=== PATIENT | female | born 1950 | race Caucasian/White ===

== ENCOUNTER → 2017-10-15 10:52 | Outpatient (CLI) | payer OTHER, SELFPAY ==
--- NOTE | 2017-10-15 | DI.CT.S_ITS ---
PROCEDURE: CT LUMBAR SPINE WO CON INDICATIONS: LUMBAR SPINE TECHNIQUE: Noncontrast 3 mm thick sections acquired from the T12 level to the sacrum. Sagittal and coronal reformats were constructed. For radiation dose reduction, the following was used: automated exposure control. COMPARISON: [facility] [place], CR, XR LUMBAR SPINE FLEXION EXTENSION, 10/04/2017, 10:25. FINDINGS: Image quality: Excellent. Bones: There is normal bony alignment. There is moderate compression deformity of T12 acute vertebral body. No suspicious lytic or blastic bony lesions. Central spinal caliber is of normal overall caliber. No pars defects. T12-L1: Mild loss of disc height and posterior disc bulge. No central canal stenosis or foraminal stenosis. L1-L2: Mild loss of disc height and posterior disc bulge. No central canal stenosis. Mild to moderate bilateral foraminal stenosis. L2-L3: Mild loss of disc height and broad posterior disc bulge and disc protrusion. There is mild bilateral facet arthropathy and moderate hypertrophy of the flavum. The central canal is eiaxreys-no-hebeqdvc narrowed. Mild to moderate bilateral foraminal stenosis. L3-L4: Mild loss of disc height and broad posterior disc bulge and disc protrusion. There is mild bilateral facet arthropathy and hypertrophy of the flavum. The central canal is vaem-rl-bxyppbwb to severely narrowed. Mild to moderate bilateral foraminal stenosis. L4-L5: Surgically fused. No central canal or foramina stenosis. L5-S1: Surgically fused. No central canal or foramina stenosis. Soft tissues: No retroperitoneal masses or hematomas. Visualized aorta is normal in caliber. There are calcified granulomas in spleen. IMPRESSION: 1. Multilevel degenerative and postsurgical changes in lumbar spine as described. 2. Moderate to severe central canal stenosis at L2-L3. 3. Vwxr-zg-[id number] foraminal stenosis at L2-L3 and L3-L4. 4. Moderate compression deformity of T12, indeterminate chronicity. Dictated by: Vipul Gregory M.D. on 10/15/2017 at 13:05 Approved by: Vipul Gregory M.D. on 10/16/2017 at 9:49
== END ==
PROVIDERS: Visit Provider Orthopaedic Surgery Orthopaedic Surgery of the Spine
DX: M51.36 Other intervertebral disc degeneration, lumbar region (principal); M48.061 Spinal stenosis, lumbar region without neurogenic claudication; M99.73 Connective tissue and disc stenosis of intervertebral foramina of lumbar region
CPT/HCPCS: 72131

== ENCOUNTER → 2018-01-17 11:02 | Outpatient (CLI) | payer OTHER, SELFPAY ==
[2018-01-17 12:21] LABS: Add Manual Diff / Slide Review NO; Basophils Percent Auto 0.3 % (0-2); Eosinophils Percent Auto 2.7 % (2-4); Hematocrit 40.4 % (36-46); Hemoglobin 13.7 g/dL (12.0-16.0); Mean Corpuscular Hemoglobin 30.8 PG (26-34); Mean Corpuscular Volume 90.6 fL (80-100); Monocytes Percent Auto 14.8 % (3-14); Neutrophils Absolute Auto 2300 /uL (3000-5900); Neutrophils Percent Auto 62.2 % (50-75); Platelet Count 150 X10^3/uL (150-400); Red Blood Cell Count 4.46 X10^6/uL (4.0-5.2); Red Cell Distribution Width 13.2 % (11.6-14.8); White Blood Cell Count 3.6 X10^3/uL (4.5-11.0)
[2018-01-17 12:35] LABS: Blood Urea Nitrogen 10 mg/dL (7-17); Calcium 9.5 mg/dL (8.4-10.2); Carbon Dioxide 29 mmol/L (22-32); Chloride 98 mmol/L (98-107); Estimated Glomerular Filt Rate > 60.0 mL/min (>60); Glucose 83 mg/dL (80-110); HEMOLYSIS < 15 (0-50); Potassium 4.3 mmol/L (3.4-5.1); Sodium 137 mmol/L (137-145)
[2018-01-17 14:05] LABS: Bacteria Urine None Seen; RBC Urine None Seen (0-5/HPF); WBC Urine None Seen (0-5/HPF)
[2018-01-17 14:43] LABS: Appearance Urine UA CLEAR; Bilirubin Urine UA NEGATIVE (NEGATIVE); Color Urine UA YELLOW; Glucose Urine UA NEGATIVE (Normal); Ketones Urine UA NEGATIVE (NEGATIVE); Leukocyte Esterase Urine UA NEGATIVE (NEGATIVE); Nitrite Urine UA Negative (Negative); Occult Blood Urine UA NEGATIVE (Negative); Protein Urine UA NEGATIVE (Negative); Specific Gravity Urine UA 1.015 (1.000-1.035); Urobilinogen Urine UA 0.2 E.U./dL (0.2); pH Urine UA 6.5 (4.5-8.0)
[2018-01-17 14:50] LABS: INR 1.1 (0.9-1.3); Prothrombin Time 11.7 SECONDS (10.1-12.7)
[2018-01-17 14:53] LABS: PTT Partial Thromboplastin Tim 30 SECONDS (26.4-36.2)
[2018-01-17 14:59] LABS: Squamous Epithelial Cell Urine 0-1 /HPF
== END ==
PROVIDERS: Visit Provider Orthopaedic Surgery Orthopaedic Surgery of the Spine
DX: Z01.818 Encounter for other preprocedural examination (principal); M47.26 Other spondylosis with radiculopathy, lumbar region; M48.061 Spinal stenosis, lumbar region without neurogenic claudication
CPT/HCPCS: 36415; 80048; 81001; 85025; 85610; 85730; 93005; 93010

== ENCOUNTER 2018-02-04 12:03 | Observation (INO) | payer OTHER, SELFPAY ==
[2018-01-18 10:25] VITALS: BMI 22.1
[2018-01-25 11:29] VITALS: BMI 20.9
[2018-02-04] VITALS (12 sets, daily range): BP systolic 120–151; BP diastolic 54–86; PULSE 56–89; RESP 10–18; TEMP 36–36.9; O2SAT 95–100; BMI 20.9
[2018-02-04] MEDS: LACTATED RINGERS 1,000 ML 42 ML IV (14:00)
[2018-02-04] MEDS: MIDAZOLAM 2 MG/2 ML VIAL IV (15:25)
--- NOTE | 2018-02-04 15:27 | SUR.PREOP ---
pt up to br a few times while waiting for surgery. midazolam given for anxiety, pt then taken to surgery.
[2018-02-04] MEDS: CEFAZOLIN 2 GM/100 ML FROZ.PIGGY IV (15:30)
--- NOTE | 2018-02-04 16:03 | SUR.OPER ---
Prone on spine table, head in foam head support, padded chest and pelvic supports, gel pad at knees, lower legs supported by pillows; nipples, genitalia and toes free of pressure, arms secured on foam padded arm boards at <90 degrees abduction. Tape over blanket at thigh secured to table.
[2018-02-04] MEDS: BUPIVACAINE 0.25% W/ EPI VIAL 30 ML INJ (16:07)
[2018-02-04] MEDS: methylPREDNISolone acet DEPO 40 MG/ML VIAL INJ (16:09)
--- NOTE | 2018-02-04 16:25 | PM.OP.1 ---
Operative Date/Time/Diagnoses Date of procedure: 02/04/18 Time of procedure: 15:25 Pre-op diagnosis: 1. L2-3, L3-4 spinal stenosis 2. L2-3, L3-4 spondylosis with radiculopathy Post-op diagnosis: same Procedure & Clinicians Procedure: 1. L2-3, L3-4 laminectomy 2. Utilization of microsurgical technique and operating microscope Same procedure as scheduled: Yes Indications: Patient has been having chronic back pain and worsening lumbar radiculopathy. Patient failed multiple conservative management with worsening pain weakness and numbness in her lower extremity. Patient has been having difficulty performing activity of daily living. After discussing risks benefits of treatment options, patient elected proceed with surgery. Surgeon: Diana Hudson [place] Operator: Shaye Mckinney Click Yes if Unassisted: No Anesthesia Type: General Operative Notes Closure Type: primary Specimen(s): none sent Estimated Blood Loss (mL): 10 Blood products transfused: none Procedure in detail: Patient was seen in the preoperative area. Risks and benefits of the surgery was discussed with the patient. Informed consent was obtained from the patient and placed in the chart. Surgical site was marked. Patient was taken to the operative room. General anesthesia was administered. Prophylactic antibiotic was given to the patient less than 30 min before the incision was made. Patient was placed into a prone position on the Matt table. Patient's back was then prepped and draped in the sterile fashion. Time-out was performed at this time. Using AP and lateral C-arm imaging the interval between L2-3, L3-4 was identified and marked on patient's back. A 2 inch incision 1 in from midline was made on the right side. The fascia was incised in line with skin incision. Globus MARS retractors was placed inside the incision and docked onto the L2 and L3 lamina. Using microsurgical technique and operating microscope, a L2 and L3 laminectomy was performed using a Kerrison rongeur. Liagamentum flavum was resected at the site of the laminotomy. Either side of the dura was exposed. Bilateral partial facetcomies was performed to further decompress the lateral recess. After the laminectomy was completed, the area medial lateral superior and inferior to the area of the laminectomy was inspected and explored using a micro curette. No other impinging structure was identified. The wound was then irrigated with sterile normal saline. 40 mg Depo-Medrol was placed into the epidural space. The deep fascia was closed with 1-0 Vicryl. The subcutaneous tissue was closed with 2-0 Vicryl. The skin was closed with 4-0 Monocryl. Patient tolerated the procedure well. There were no complications. Patient was transferred recovery room in stable condition. Complications: none Condition: stable Disposition: observation Plan for aftercare: Overnight stay for observation
--- NOTE | 2018-02-04 16:28 | DI.RAD.S_ITS ---
PROCEDURE: XR LUMBAR SPINE 2-3V INDICATIONS: L2-3, L3-4 MICRO DISCECTOMY TECHNIQUE: 2 intraoperative fluoroscopic views of the lumbar spine were acquired. COMPARISON: None. FINDINGS: Bones: Intraoperative fluoroscopic images of lumbar spine shows prior posterior fusion of 3 lumbar spine vertebral bodies and a surgical instrument placed posteriorly just above the level of most proximal views vertebral body. Exact level cannot be determined based on the images given. IMPRESSION: Fluoroscopic guidance was provided intraoperatively for lumbar spine microdiscectomy. Dictated by: Lazaro Rob M.D. on 02/04/2018 at 16:36 Approved by: Lazaro Rob M.D. on 02/04/2018 at 16:37
[2018-02-04] MEDS: METOCLOPRAMIDE 10 MG/2 ML INJ IV (16:54)
[2018-02-04] MEDS: fentaNYL 100 MCG/2 ML INJ 50 MCG IV ×2 (16:54→17:03)
[2018-02-04] MEDS: ONDANSETRON 4 MG/2 ML INJ IV (17:53)
[2018-02-04] MEDS: SODIUM CHLORIDE 0.9% 1,000 ML 100 ML IV (17:53)
[2018-02-04] MEDS: HYDROMORPHONE 1 MG INJ 0.2 MG IV ×2 (17:53→21:46)
--- NOTE | 2018-02-04 17:59 | PC.NURSE ---
Admit Note: Patient admitted to Acute Care from PACU at 1730. S/p laminectomy. Patient pleasant, alert and oriented times 2. Patient verbalized understanding of log roll, call light and orientation to room. Patient medicated for nausea and pain. Admission done and report given to KALEIGH Wade.
[2018-02-04] MEDS: OXYCODONE IR 5 MG TABLET PO ×2 (20:28→23:51)
[2018-02-04] MEDS: DOCUSATE 100 MG CAPSULE PO (20:28)
[2018-02-04] MEDS: LORazepam 1 MG TABLET PO (20:29)
[2018-02-04] MEDS: LOSARTAN 50 MG TABLET PO (20:29)
[2018-02-04] MEDS: CARISOPRODOL 350 MG TABLET PO (20:32)
[2018-02-04] MEDS: SENNOSIDES 8.6 MG TABLET 17.2 MG PO (20:33)
[2018-02-04] MEDS: SODIUM CHLORIDE 0.9% FLUSH 10 ML IV (21:48)
--- NOTE | 2018-02-04 22:20 | PC.NURSE ---
Post-op note: Treri brought from PACU via [facility], as was originally supposed to DC from PACU as outpatient. Pt has no one to help her tonight so is admitted to [facility]. Assisted her to transfer from [facility] to bed, post-op Lami instructions reinforced. Reported pain and nausea upon admission, float RN in room to medicate her. Since then has been given one tab oxycodone which took her pain from a 8 to a 5, later saying 'it was not enough, I then medicated her with Dilaudid 0.2 mg IV for breakthru pain. Found patient sitting up in bed not using bed controls, twisting at waist to reach things on bedside table. I reviewed the lami post-op instructions & precautions with her again. She told me she is forgetful--I have to leave notes all over my house so I remember to do things. Oriented to self, place & situation, instructed to use call button for assistance. Denies nausea, able to eat 1/2 sandwich and crackers tonight. Voiding via BR toilet. 2nd water bottle given to her as she reports I need 2 bottles--I drink a lot of water.
[2018-02-04] MEDS: ZOLPIDEM 5 MG TABLET 10 MG PO (23:51)
[2018-02-05] MEDS: HYDROMORPHONE 1 MG INJ 0.2 MG IV ×2 (02:08→04:59)
[2018-02-05] MEDS: CEFAZOLIN 1 GM/50 ML FROZ.PIGGY IV (02:09)
[2018-02-05] MEDS: OXYCODONE IR 5 MG TABLET PO (02:56)
[2018-02-05] MEDS: SODIUM CHLORIDE 0.9% 1,000 ML 100 ML IV (02:58)
[2018-02-05 03:04] VITALS: BP 124/72; PULSE 68; RESP 17; TEMP 36.8; O2SAT 98
--- NOTE | 2018-02-05 04:15 | PC.NURSE ---
shift note pt complains of pain 7-8/10 throughout much of shift. Provided prn percolone and IV dialudid. Little decrease in pain. Call light in hand.
[2018-02-05] MEDS: LEVOTHYROXINE 25 MCG TABLET PO (05:41)
[2018-02-05 06:10] LABS: Hematocrit 38.3 % (36-46); Hemoglobin 13.2 g/dL (12.0-16.0)
[2018-02-05] MEDS: CARISOPRODOL 350 MG TABLET PO (06:22)
[2018-02-05 07:23] VITALS: BP 121/70; PULSE 70; RESP 18; TEMP 36.4; O2SAT 98
--- NOTE | 2018-02-05 07:40 | PM.PNPO.1 ---
Subjective Date Patient Seen: 02/05/18 Time Patient Seen: 07:41 Interval history: Patient is status post L2-L4 laminectomy by Dr. Hudson. Postop day 1. Patient states that she was uncomfortable this morning and had to get a shot of Dilaudid. Currently only 1 oxycodone 5 mg ordered every 3 hr for her. She notes that she is very narcotic resistant. She has been on 2 hydrocodone and Soma for her back pain. She is also asking for a prescription for Soma discharge. She cannot get a prescription from any physician in [place] at this moment. Her prescription is from her doctor in [place] which she can get any refills now. She states it is the only medication that helps with her muscle spasms and she has tried multiple muscle relaxers in the past. Exam Vital Signs (past 8 hours): - 02/04/18 23:50 02/05/18 03:04 02/05/18 07:23 Temperature 97.1 F L 98.3 F 97.5 F L Pulse Rate 89 68 70 Respiratory Rate 16 17 18 Blood Pressure 134/80 124/72 121/70 Pulse Oximetry 95 98 98 Oxygen Delivery Method Room Air Oxygen Flow Rate 0 Narrative Exam Narrative: Patient in bed. Appears comfortable. Back dressings clean dry and intact. Bilateral calf soft nontender. 5/5 BLE. Neurovascular status intact. Objective Labs Result Diagrams: 02/05/18 05:41 Labs: Laboratory Results - last 24 hr 02/05/18 05:41 Hgb 13.2 Hct 38.3 Assessment & Plan Post-op Postoperative Procedures Operation Date: 02/04/18 13:45 Actual Procedures Side Surgeon p Laminectomy L2-3,L3-4 Diana Hudson MD Status post L2-L4 laminectomy. PD 1. Ambulate with PT. Oxycodone will be increased to 10mg q3h. Will try valium for muscle spasms. D/C IV dilaudid. 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 Quality VTE Deep Vein Thrombosis/Pulmonary Embolism Present on Admission: No
--- NOTE | 2018-02-05 07:47 | P.PN_ITS ---
Subjective Date Patient Seen: 02/05/18 Time Patient Seen: 07:41 Interval history: Patient is status post L2-L4 laminectomy by Dr. Hudson. Postop day 1. Patient states that she was uncomfortable this morning and had to get a shot of Dilaudid. Currently only 1 oxycodone 5 mg ordered every 3 hr for her. She notes that she is very narcotic resistant. She has been on 2 hydrocodone and Soma for her back pain. She is also asking for a prescription for Soma discharge. She cannot get a prescription from any physician in [place] at this moment. Her prescription is from her doctor in [place] which she can get any refills now. She states it is the only medication that helps with her muscle spasms and she has tried multiple muscle relaxers in the past. Exam Vital Signs (past 8 hours): - 02/04/18 23:50 02/05/18 03:04 02/05/18 07:23 Temperature 97.1 F L 98.3 F 97.5 F L Pulse Rate 89 68 70 Respiratory Rate 16 17 18 Blood Pressure 134/80 124/72 121/70 Pulse Oximetry 95 98 98 Oxygen Delivery Method Room Air Oxygen Flow Rate 0 Narrative Exam Narrative: Patient in bed. Appears comfortable. Back dressings clean dry and intact. Bilateral calf soft nontender. 5/5 BLE. Neurovascular status intact. Objective Labs Result Diagrams: 02/05/18 05:41 Labs: Laboratory Results - last 24 hr 02/05/18 05:41 Hgb 13.2 Hct 38.3 Assessment & Plan Post-op Postoperative Procedures Operation Date: 02/04/18 13:45 Actual Procedures Side Surgeon p Laminectomy L2-3,L3-4 Diana Hudson MD Status post L2-L4 laminectomy. PD 1. Ambulate with PT. Oxycodone will be increased to 10mg q3h. Will try valium for muscle spasms. D/C IV dilaudid. 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 Quality VTE Deep Vein Thrombosis/Pulmonary Embolism Present on Admission: No
[2018-02-05] MEDS: DOCUSATE 100 MG CAPSULE PO (08:02)
[2018-02-05] MEDS: LOSARTAN 50 MG TABLET PO (08:02)
[2018-02-05] MEDS: OXYCODONE IR 10 MG TABLET PO (08:02)
--- NOTE | 2018-02-05 09:32 | OT.IP.EVAL ---
Current Diagnoses Sleep apnea, unspecified (02/04/18) Heart failure, unspecified (02/04/18) Emphysema, unspecified (02/04/18) Other spondylosis with radiculopathy, lumbar region (02/04/18) Spinal stenosis, lumbar region without neurogenic claudication (02/04/18) Arthrodesis status (02/04/18) Other specified postprocedural states (02/04/18) Surgery Performed Operation Date: 02/04/18 13:45 Actual Procedures p Laminectomy L2-3,L3-4 - Diana Hudson MD Past Medical History (Last Updated 01/29/18 @ 08:52 by Marilee Mitchell RN) Anxiety (Acute) Arthralgia (Acute) Arthritis (Acute) CAD (coronary artery disease) (Acute) CHF (congestive heart failure) (Acute) COPD (chronic obstructive pulmonary disease) (Acute) Cataract (Acute) Central stenosis of spinal canal (Acute) Chronic arthralgias of knees and hips (Acute) Chronic pain (Acute) Chronic viral hepatitis (Acute) Cystocele (Acute) Disease of thyroid gland (Acute) Dyspareunia (Acute) Emphysema of lung (Acute) Environmental allergies (Acute) Epistaxis (Acute) Fatigue (Acute) Fibromyalgia (Acute) Foraminal stenosis of lumbar region (Acute) H/O multiple allergies (Acute) Hearing loss (Acute) History of anemia (Acute) History of epistaxis (Acute) History of headache (Acute) History of hepatitis C (Acute) History of migraine headaches (Acute) Hypertension (Acute) Impaired vision (Acute) LBBB (left bundle branch block) (Acute) Latent tuberculosis infection (Acute) Mitral valve prolapse (Acute) Non-restorative sleep (Acute) Osteoarthritis of spine with radiculopathy, lumbar region (Acute) Osteoarthropathy (Acute) Osteoporosis (Acute) Productive cough (Acute ~2016) Rash (Acute) Rectocele, female (Acute) Restless leg syndrome (Acute) Rheumatoid factor positive (Acute) Ringing in ears (Acute) Sleep apnea (Acute ~1997) Squamous cell carcinoma (Acute) Squamous cell skin cancer (Acute) Stomach ulcer (Acute) Weakness (Acute) Surgical History (Last Updated 01/25/18 @ 11:01 by Marilee Mitchell, RN) Cataract extraction status of left eye (Acute) H/O sinus surgery (Acute ~2017) History of cardiac cath (Acute ~2005) History of lumbar spinal fusion (Acute ~2002) History of nasal septoplasty (Acute 11/26/17) History of nasal surgery (Acute) History of throat surgery (Acute) History of total knee arthroplasty (Acute) History of uvulopalatopharyngoplasty (Acute) Hx of breast implants, bilateral (Acute ~1990) Occupational Therapy Inpatient Evaluation/Re-Eval M1 PT/OT-IP Prior Functional Status Start: 02/05/18 12:30 Freq: NEEDED Status: Active Protocol: Document 02/05/18 09:32 PJM (Rec: 02/05/18 12:47 PJM [id number]) Medical Review Prior Functional Status Medical History Reviewed Yes Diet/Fluid Consistency Regular Communication WNL Mobility and Gait mod ind w/ SPC, does better walking, cannot stand still for very long Activities of Daily Living and IADL's ind to mod ind, though describes having difficulty with most dictaphone typist;,pt applying for choreworker assistance Prior Functional Level (Other details) pt has had one fall when stepping off step stool 5-6 months ago Knee buckled; pt admits to high anxiety and would like to get a therapy dog Social History Household Members none Living Arrangements Apartment/Condo Number of Floors (Floors) One Floor Number of Stairs To Enter/Railing? n/a, pt states she has a steep unpaved incline down to access her apartment Home Environment Standard Height Toilet Tub/Shower Home Equipment Straight Cane Employment Status Retired Additional Social History Comment pt uses laundry room in her apt complex M2 OT-IP Current Condition Start: 02/05/18 12:30 Freq: Status: Active Protocol: Document 02/05/18 09:32 PJM (Rec: 02/05/18 12:47 PJM [id number]) Occupational Therapy Current Condition Current Condition Evaluation Date 02/05/18 Treatment Diagnosis 0900 Diagnosis Onset Date 32 Post Operative Precautions Lumbar Precautions Log Roll No Twisting Limit Bending Lifting Restriction of 10 lbs Gait Belt above Incisional Area M3 OT- IP Subjective and Pain Start: 02/05/18 12:30 Freq: Status: Active Protocol: Document 02/05/18 09:32 PJM (Rec: 02/05/18 12:47 PJM [id number]) OT- Subjective Occupational Therapy Visit Type Type Initial Evaluation Visit Start Time 09:00 Visit Stop Time 09:32 Total Visit Minutes 32 Occupational Therapy Visit Comments Patient Comments When do I get this IV out? Patient/Caregiver Goals to go home today; have less back pain OT Pain Assessment Pain When Pain Assessed After Treatment Pain Present Pain Present Pain Reported Location Back Intensity 7 Scale Used Numeric (1 - 10) Description Aching Pain Behaviors Facial Grimacing Guarding Management Techniques Distraction Re-positioning Timing of Activity with Medications M4 OT- IP ADL's Start: 02/05/18 12:30 Freq: Status: Active Protocol: Document 02/05/18 09:32 PJ (Rec: 02/05/18 12:47 PJ [id number]) OT [id number] General Evaluation Self-Feeding Ability Independent OT ADL-Grooming General Evaluation Grooming Ability Independent Areas Needing Assistance Combing/Brushing Hair Face Washing Comments OT Grooming Comments standing at sink after education re: body mechanics OT ADL-Oral Care General Eval Oral Care Ability Independent Comments Oral Care Comments standing at sink after education re: body mechanics OT ADL-Dressing General Eval Upper Body Dressing Ability Independent Lower Body Dressing Ability Independent Areas Needing Assistance Pants/Shorts Socks Shoes Assistive Devices Dressing Assistive Devices Long Handled Shoe Horn Money Order Clerk Sock Aid Comments OT Dressing Comments Pt modified indep after education re: use of above equipment (all equipt provided ) and education re: body mechanics. OT ADL-Toileting General Evaluation Toileting Ability Independent Comments OT Toileting Comments provided education re: body mechanics, equipt options to increase height of toilet, and equipt resources OT ADL-Bathing Bathing Type Bathing Type Shower Comments OT Bathing Comments pt declined to shower here, provided education re: body mechanics and provided long bath sponge. Provided education re: tub seat options , clamp on tub grab bar and resources for obtaining equipment. M5 OT- IP IADL's Start: 02/05/18 12:30 Freq: Status: Active Protocol: Document 02/05/18 09:32 PJM (Rec: 02/05/18 12:47 PJ [id number]) OT-Instrumental Activities of Daily Living Deficits IADL Deficits Identified Deficits Home Safety Awareness Awareness of Need for Assistance at Home Good Awareness Ability to Problem Solve Emergency Able to Problem Solve Situations Medication Management Medication Management No Deficits Identified Money Management Money Management No Deficits Identified Meal Preparation Meal Preparation No Deficits Identified Supervisor Plating And Point Assembly Supervisor Plating And Point Assembly Caregiver Provides Assist Supervisor Plating And Point Assembly Comments Pt's granddaughter assists pt PRN; pt applying for choreworker assistance. Driving Driving Caregiver Provides Assist Driving Comments Granddaughter assists PRN M6 OT- IP Functional Cognition Start: 02/05/18 12:30 Freq: Status: Active Protocol: Document 02/05/18 09:32 PJM (Rec: 02/05/18 12:47 PJM [id number]) Cognitive Factors Limiting Selfcare Function Cognitive Ability Level of Alertness Alert Patient Orientation Name Age Birthday Month Date Year Day of Week Place Situation Attention Span Ability Capable of Focused Attention Capable of Sustained Attention Ability to Follow Commands Able to Follow One Step Commands Memory Description No Deficits Noted Safety Awareness Decreased Recall of Precautions Problem Solving Ability Needs Assist to Identify Solutions Cognitive Comments Cognitive Assessment Comments Pt needs occasional cues to avoid bending and especially twisting during functional tasks. OT- Vision and Hearing OT- Hearing Assessment OT- Hearing Assessment WFL OT- Vision Assessment Visual Acuity Glasses All The Time Vision Assessment Comments Pt reports needing R cataract surgery; denies any recent changes M7 OT- IP Mobility and Balance Start: 02/05/18 12:30 Freq: Status: Active Protocol: Document 02/05/18 09:32 PJM (Rec: 02/05/18 12:47 PJ NR) OT-Transfer Assessment Sit to and From Stand Sit to and from Stand Independent Transfers Transfer Ability Independent Technique Transfer Destination Chair Transfer Technique Stand Step Pivot Devices Transfer Assistive Devices None OT- Gait Assessment Gait Gait Assistance Required: Independent Assistive Devices Assistive Device None Comments Gait Ability Comments Pt ambulating in room without a device to sink and back OT- Balance Assessment Sitting Balance and Reactions Static Sitting Balance Ability Normal Dynamic Sitting Balance Ability Normal Standing Balance and Reactions Static Standing Balance Ability Good Dynamic Standing Balance Ability Good Comments Other Balance Tests/Deviations/Treatment during self care tasks : M8 OT- IP Objective Assessments Start: 02/05/18 12:30 Freq: Status: Active Protocol: Document 02/05/18 09:32 PJM (Rec: 02/05/18 12:47 PJ [id number]) OT Gross Range of Motion Upper Extremity Range of Motion Assessment Within Functional Limits OT Strength Upper Extremity Strength Assessment Within Functional Limits OT- Coordination Assessment Comments Coordination Comments BUE WFL OT Sensation Assessment Comments Summary Comments Pt denies deficits in BUE's M9 OT- IP Assessment and Plan Start: 02/05/18 12:30 Freq: Status: Active Protocol: Document 02/05/18 09:32 PJYi (Rec: 02/05/18 12:47 PJM [id number]) OT Summary Assessment and Plan Potential Rehabilitation Potential Good Analytic Complexity at Evaluation Low Summary Assessment Summary Low complexity OT assessment and all education completed in one visit re: lumbar spine precautions and body mechanics during self care/IADLS. Pt has anxiety overlay but is modified independent with self care skills after education and provision of adaptive equipment. Pt plans to d/c home today with intermittent assist from her granddaughter who lives nearby. Treatment Plan Other Treatment Recommendations and Next No further OT services needed. Treatment Focus Discharge Recommendations OT Discharge Recommendations Home with Assistance Home Equipment Needs RTS, tub seat, grab bar on tub
--- NOTE | 2018-02-05 10:12 | P.DS_ITS ---
History of Present Illness Date Patient Seen: 02/05/18 Time Patient Seen: 07:58 Chief complaint: [id number] Narrative: Details of the patient's H&P can be found in the electronic chart. Discharge Providers Consults: 02/04/18 17:32 Consult to Occupational Therapy Evaluate & Treat Comment: Physician Instructions: Evaluate and treat Consult to Physical Therapy Evaluate & Treat Comment: Physician Instructions: Evaluate and Treat 02/04/18 17:48 Consult to Dietitian, Adult Routine Comment: Reason For Exam: protocol Discharge provider: Rupinder Sanchez PA-C Summary Discharge Diagnosis: 1. L2-3, L3-4 spinal stenosis 2. L2-L3, L3-4 spondylosis with radiculopathy Hospital Course: Patient was admitted taken operating room where she had a L2- L4 laminectomy by Dr. Hudson. She recovered well was transferred to the floor for further care. Postop day 1 patient's pain was managed with oxycodone 10 mg. She was ambulating well, able to urinate without difficulty, and eating and drinking well. She was cleared by Physical therapy to be discharged home. She is given a prescription for oxycodone 10 mg for pain and diazepam and 2 mg for muscle spasms. She will follow up in office in 10-14 days. Status at Discharge Cognitive/behavioral status at discharge: Alert and orient x3 Functional status at discharge: uses cane/walker Time Spent with Patient Less than 30 minutes Exam Vital Signs (past 8 hours): - 02/05/18 03:04 02/05/18 07:23 Temperature 98.3 F 97.5 F L Pulse Rate 68 70 Respiratory Rate 17 18 Blood Pressure 124/72 121/70 Pulse Oximetry 98 98 Oxygen Delivery Method Room Air Oxygen Flow Rate 0 Narrative Exam Narrative: patient in bed. Alert orient x3. Appears comfortable. VAC dressing clean dry and intact. 5/5 bilateral lower extremity strength. Bilateral calves soft and nontender. Neurovascular status intact. Objective Labs Result Diagrams: 02/05/18 05:41 Labs: Laboratory Results - last 24 hr 02/05/18 05:41 Hgb 13.2 Hct 38.3 Discharge Plan Discharge Plan Patient Disposition: Home Discharge Med Rec/Prescriptions Prescriptions: New diazepam 2 mg Tablet 2 mg PO TID PRN (Reason: Muscle Spasm) Qty: 40 RF: 0 oxycodone 10 mg Tablet 10 mg PO Q3H PRN (Reason: Pain, Severe (7-10)) Qty: 60 RF: 0 Continue flaxseed oil 1,000 mg Capsule 1,000 mg PO BID RF: 0 zolpidem 12.5 mg Tablet,Ext Release Multiphase 12.5 mg PO BEDTIME PRN (Reason: Sleep) RF: 0 levothyroxine 25 mcg Capsule 25 mcg PO DAILY RF: 0 losartan 50 mg Tablet 50 mg PO BID RF: 0 lorazepam [Ativan] 1 mg Tablet 1 mg PO TID RF: 0 Discontinued carisoprodol 350 mg Tablet 350 mg PO QID PRN (Reason: Muscle tension) RF: 0 Follow up/Referrals: Diana Hudson MD [Physician] - (Follow-up in at scheduled appointment. Call office with any issues or concerns.) Provider Discharge Instructions Diet: Diet as Tolerated Activity: Activity as tolerated. No lifting, bending or twisting Cold/Heat Therapy: Apply ice it as needed for pain and inflammation. Skin/Wound/Dressing Care Report to your healthcare provider any signs of infection, such as:: chills, fever, increased pain and unusual drainage Dressing: Keep dressing clean, dry and intact. Visit Report/Discharge Packet Instructions: DI for Laminectomy Discharge Data Attending Provider: Diana Hudson Admit Date/Time: 02/04/18 12:03 Discharges patient from system. Discharge Date/Time: 02/05/18 10:26 Quality VTE Deep Vein Thrombosis/Pulmonary Embolism Present on Admission: No
--- NOTE | 2018-02-05 10:35 | PT.IIE ---
Current Diagnoses Sleep apnea, unspecified (02/04/18) Heart failure, unspecified (02/04/18) Emphysema, unspecified (02/04/18) Other spondylosis with radiculopathy, lumbar region (02/04/18) Spinal stenosis, lumbar region without neurogenic claudication (02/04/18) Arthrodesis status (02/04/18) Other specified postprocedural states (02/04/18) Surgery Performed Operation Date: 02/04/18 13:45 Actual Procedures p Laminectomy L2-3,L3-4 - Diana Hudson MD Surgical History (Last Updated 01/25/18 @ 11:01 by Marilee Mitchell, RN) Cataract extraction status of left eye (Acute) H/O sinus surgery (Acute ~2017) History of cardiac cath (Acute ~2005) History of lumbar spinal fusion (Acute ~2002) History of nasal septoplasty (Acute 11/26/17) History of nasal surgery (Acute) History of throat surgery (Acute) History of total knee arthroplasty (Acute) History of uvulopalatopharyngoplasty (Acute) Hx of breast implants, bilateral (Acute ~1990) Medical History (Last Updated 01/29/18 @ 08:52 by Marilee Mitchell, RN) Anxiety (Acute) Arthralgia (Acute) Arthritis (Acute) CAD (coronary artery disease) (Acute) CHF (congestive heart failure) (Acute) COPD (chronic obstructive pulmonary disease) (Acute) Cataract (Acute) Central stenosis of spinal canal (Acute) Chronic arthralgias of knees and hips (Acute) Chronic pain (Acute) Chronic viral hepatitis (Acute) Cystocele (Acute) Disease of thyroid gland (Acute) Dyspareunia (Acute) Emphysema of lung (Acute) Environmental allergies (Acute) Epistaxis (Acute) Fatigue (Acute) Fibromyalgia (Acute) Foraminal stenosis of lumbar region (Acute) H/O multiple allergies (Acute) Hearing loss (Acute) History of anemia (Acute) History of epistaxis (Acute) History of headache (Acute) History of hepatitis C (Acute) History of migraine headaches (Acute) Hypertension (Acute) Impaired vision (Acute) LBBB (left bundle branch block) (Acute) Latent tuberculosis infection (Acute) Mitral valve prolapse (Acute) Non-restorative sleep (Acute) Osteoarthritis of spine with radiculopathy, lumbar region (Acute) Osteoarthropathy (Acute) Osteoporosis (Acute) Productive cough (Acute ~2017) Rash (Acute) Rectocele, female (Acute) Restless leg syndrome (Acute) Rheumatoid factor positive (Acute) Ringing in ears (Acute) Sleep apnea (Acute ~1997) Squamous cell carcinoma (Acute) Squamous cell skin cancer (Acute) Stomach ulcer (Acute) Weakness (Acute) Physical Therapy Inpatient Evaluation/Re-Eval Medical Review Prior Functional Status Medical History Reviewed Yes Diet/Fluid Consistency Regular Communication no known deficits Mobility and Gait mod ind w/ SPC, does better walking, cannot stand still for very long Activities of Daily Living and IADL's ind to mod ind, though describes having difficulty with most houeshold chores Prior Functional Level (Other details) denies falls Social History Household Members none Living Arrangements Apartment/Condo Number of Floors (Floors) One Floor Number of Stairs To Enter/Railing? n/a Home Equipment Straight Cane Physical Therapy Current Condition Current Condition Evaluation Date 02/05/18 Treatment Diagnosis L2-4 lami Onset Date 02/04/18 Precautions Lumbar Precautions Log Roll No Twisting Limit Bending Lifting Restriction of 10 lbs Gait Belt above Incisional Area Subjective Physical Therapy Visit Type Type Initial Evaluation Visit Start Time 08:00 Visit Stop Time 08:55 Total Visit Minutes 55 Physical Therapy Visit Comments Patient Comments Pt wanting to go home [facility], doesn't feel like she's getting adequate pain management here. Short Term Goals go home Therapy Pain Assessment Pain When Pain Assessed At Rest Pain Present Pain Present Pain Reported Location Back Intensity 6 Scale Used Numeric (1 - 10) Pain Management Techniques Distraction Modification of Treatment Re-positioning Timing of Activity with Medications PT-Bed Mobility Assessment Rolling Type of Rolling Log Rolling Level of Assist Independent Supine to Sit Supine to Sit Independent Sit to Supine Sit to Supine Independent PT-Transfer Assessment Sit to and From Stand Sit to and from Stand Independent Equipment Transfer Assistive Device Straight Cane Transfers Transfer Destination Chair Transfer Technique Stand Step Pivot Transfer Ability Level of Assist Independent Gait Assessment Gait Gait Assistance Required: Independent Distance (Feet) (feet) 150 Assistive Devices Assistive Device Straight Cane Gait Deviations General Gait Pattern Within Normal Limits Comments Gait Comments Pt quite steady, no LOB or gait abnormalities, no obvious non-verbal indicators if pain also. PT-Balance Assessment Sitting Balance and Reactions Static Sitting Balance Ability Normal Dynamic Sitting Balance Ability Normal Standing Balance and Reactions Static Standing Balance Ability Normal Dynamic Standing Balance Ability Good Orientation Orientation/Cognition Level of Alertness Alert Orientation Name Age Birthday Month Date Year Day of Week Place Situation Language Function Ability No Deficits Noted Safety Awareness Understands Safety Issues Memory Description No Deficits Noted Gross Range of Motion Upper Extremity ROM Assessment Within Functional Limits Lower Extremity ROM Assessment Within Functional Limits Strength Upper Extremity Strength Assessment Within Functional Limits Lower Extremity Strength Assessment Within Functional Limits Physical Therapy Treatment Education Education Provided Precautions Weight Bearing Status Post-Op Packet Safety PT Summary Assessment and Plan Potential Rehabilitation Potential Good Status of Condition at Evaluation Stable Summary Impairments Pain Progress Towards Goals Safe For Discharge Assessment Summary Pt is POD#1 for L2-4 laminectomy. Pt is ind to mod ind with all mobility and is at her functional baseline. Pt has no need for new DME or for follow-up therapy at this time. Recommend pt discharge directly home once medically ready. Acute PT will sign off. Goals Bed Mobility Goal Independent Transfer Goal Independent Cane Gait Goal Independent Cane Gait Distance 150 Frequency of Treatment Frequency Of Treatment Discharge Recommendations To Nursing Amount of Assist Needed Independent Discharge Recommendations PT Discharge Recommendations Home
== END 2018-02-05 10:26 | disposition home or self-care (01) ==
PROVIDERS: Admitting Provider Orthopaedic Surgery Orthopaedic Surgery of the Spine; Visit Provider Orthopaedic Surgery Orthopaedic Surgery of the Spine
PROC: (CPT 63047; principal; 2018-02-04 13:45)
DX: M48.061 Spinal stenosis, lumbar region without neurogenic claudication (principal); M47.26 Other spondylosis with radiculopathy, lumbar region; Z98.1 Arthrodesis status
CPT/HCPCS: 63047; 63048; 36415; 72100; 76001; 85014; 85018; 97116; 97161; 97165; 97530; 97535; G0378; G0379; J0690; J1030; J1170; J2250; J2405; J2765; J3010

== ENCOUNTER → 2019-07-31 14:28 | Outpatient (CLI) | payer MEDICARE, MEDICAID, SELFPAY ==
[2018-02-04 20:15] VITALS: BMI 20.9
--- NOTE | 2019-07-31 | DI.ECHO.S_ITS ---
[facility] + [facility] +---------+ : : [address] : : : : [address] : : : : [place], : : : : [place] [id number] : : : : Phone: [phone] [id number] Echocardiogram Report + + :Name: GLADYS YIP Study Date: 07/31/2019 Height: 67 in : :[facility] Weight: 140 lb : : Gender: Female BSA: 1.7 m2 : :: 1950 Age: 68 yrs BP: 140/90 mmHg: :Reason For Study: Left bundle branch block : :Ordering Physician: Mandeep Burnett : :Nicol Performed By: Sonia Correa : :Referring: MANDEEP CAMARENA : + + Interpretation Summary 1) Normal left ventricular size and thickness with low normal systolic function (EF 50-55%). 2) Normal right ventricular size and function. 3) No significant valvular abnormalities. 4) Hypertension present during the study (BP 149/90mmHg). 5) Compared to the Echo done 08/10/2017, LVEF is low normal on today's study. Procedure: A two-dimensional transthoracic echocardiogram with color flow and Doppler was performed. The study quality was technically adequate. Comparison is made with the echocardiogram of 08/10/2017. The patient was in normal sinus rhythm during the exam. The patient had a bundle branch block rhythm during the exam. Left Ventricle: The left ventricle is normal in size and wall thickness. The ejection fraction is estimated to be 50-55%. Left ventricular systolic function is low normal. Septal motion is consistent with conduction abnormality. Diastolic parameters suggest a relaxation abnormality of the left ventricle, consistent with probable normal filling pressures. Right Ventricle: The right ventricle is normal in size and function. Atria: Both atria are normal in size. There is no Doppler evidence for an interatrial shunt. Mitral Valve: The mitral valve is normal in structure and function. There is no evidence of mitral valve prolapse. There is mild mitral regurgitation. Aortic Valve: The aortic valve is trileaflet. The aortic valve opens well. There is mild aortic valve sclerosis. There is no aortic valve stenosis. No aortic regurgitation is present. Tricuspid Valve: The tricuspid valve is normal in structure and function. There is mild tricuspid regurgitation. The right ventricular systolic pressure is estimated to be at least 18 mmHg based on an estimated right atrial pressure of 3 mm Hg. Pulmonic Valve: The pulmonic valve is normal in structure and function. There is no pulmonic valvular regurgitation. Great Vessels: The aortic root is normal size. The IVC is of normal diameter and collapses greater than 50% with a sniff. This suggests a low right atrial pressure of 3 mm Hg. Pericardium/ Pleura There is no pericardial effusion. There is no pleural effusion. MMode/2D Measurements & Calculations LVIDd: 4.0 cm AoV Openin.6 cm LVIDs: 2.9 cm LVOT diam: 2.0 cm IVSd: 0.84 cm Ao root diam: 3.0 cm LVPWd: 0.80 cm Ao Arch Diam (Prox Trans): 2.2 cm LV graham. diameter/BSA (cm/m^2): 2.3 LV sys. diameter/BSA (cm/m^2): 1.6 FS: 27.8 % EPSS: 0.29 cm LA A2 area: 16.4 cm2 RA long axis: 4.5 cm LA A4 area: 15.2 cm2 RA area: 14.3 cm2 LA length (vol): 4.3 cm RA vol: 39.0 ml LA vol: 48.9 ml RA : 22.4 ml/m2 LA vol index: 28.2 ml/m2 RVD1 (basal): 3.1 cm IVC diam: 1.6 cm TAPSE: 2.1 cm Doppler Measurements & Calculations Ao V2 max: 114.4 cm/sec LVOT Max Ruperto: 84.5 cm/sec Ao V2 mean: 80.3 cm/sec LV V1 max P.9 mmHg Ao V2 VTI: 21.7 cm LV V1 VTI: 17.1 cm Ao max P.2 mmHg Ao mean P.9 mmHg GARCIA(I,D): 2.5 cm2 MV E max ruperto: 63.4 cm/sec GARCIA(V,D): 2.3 cm2 MV A max ruperto: 49.4 cm/sec GARCIA indexed to BSA (cm^2/m^2): 1.4 MV E/A: 1.3 sev ratio: 0.79 Med Peak E' Ruperto: 4.3 cm/sec E/E' med: 14.8 Lat Peak E' Ruperto: 6.6 cm/sec E/E' lat: 9.6 E/e' average: 12.2 MV dec time: 0.20 sec TR max ruperto: 196.4 cm/sec MV P1/2t: 59.9 msec TR max P.4 mmHg MVA(P1/2t): 3.7 cm2 PA V2 max: 82.1 cm/sec SV(LVOT): 53.1 ml PA V2 mean: 48.4 cm/sec PA mean P.1 mmHg PA pr(Accel): 41.6 mmHg PA Accel Time: 0.10 sec Reading Physician:04:27 PM
== END ==
PROVIDERS: Referring Provider Internal Medicine Cardiovascular Disease; Visit Provider Internal Medicine Cardiovascular Disease
DX: I08.3 Combined rheumatic disorders of mitral, aortic and tricuspid valves (principal); I44.7 Left bundle-branch block, unspecified
CPT/HCPCS: 93306